=== PATIENT | female | born 1955 | race Caucasian/White ===

== ENCOUNTER → 2025-05-04 17:05 | Outpatient (REF) | payer MEDICARE, BC, SELFPAY | LOC: RAD 17:05 | PROVIDERS: ATTENDING PHYSICIAN Student in an Organized Health Care Education/Training Program; FAMILY PHYSICIAN Physician Assistant | DX: J90 Pleural effusion, not elsewhere classified (principal); R07.89 Other chest pain | CPT/HCPCS: 71046; 71250 ==

== ENCOUNTER → 2025-05-26 11:46 | Outpatient (REF) | payer MEDICARE, BC, SELFPAY | LOC: RAD 11:46 | PROVIDERS: ATTENDING PHYSICIAN Physician Assistant | DX: J90 Pleural effusion, not elsewhere classified (principal) | CPT/HCPCS: 71046 ==

== ENCOUNTER → 2025-08-04 15:46 | Outpatient (REF) | payer MEDICARE, BC, SELFPAY | LOC: RAD 15:46 | PROVIDERS: ATTENDING PHYSICIAN Physician Assistant | DX: E11.9 Type 2 diabetes mellitus without complications (principal); I10 Essential (primary) hypertension; R06.09 Other forms of dyspnea; E87.5 Hyperkalemia; J90 Pleural effusion, not elsewhere classified | CPT/HCPCS: 71046 ==

== ENCOUNTER → 2025-08-08 08:58 | Outpatient (REF) | payer MEDICARE, BC, SELFPAY | LOC: HWRCS 08:58 | PROVIDERS: ATTENDING PHYSICIAN Physician Assistant | DX: E11.9 Type 2 diabetes mellitus without complications (principal); I10 Essential (primary) hypertension; R06.09 Other forms of dyspnea; E78.5 Hyperlipidemia, unspecified; J90 Pleural effusion, not elsewhere classified | CPT/HCPCS: 93306 ==

== ENCOUNTER → 2025-08-23 07:48 | Outpatient (REF) | payer MEDICARE, BC, SELFPAY | LOC: RAD 07:48 | PROVIDERS: ATTENDING PHYSICIAN Physician Assistant | DX: J90 Pleural effusion, not elsewhere classified (principal) | CPT/HCPCS: 71260; Q9967 ==

== ENCOUNTER → 2025-09-08 13:24 | Outpatient (REF) | payer MEDICARE, BC, SELFPAY ==
[2025-09-08 13:51] VITALS: BP 125/74; BP_SYST 90
[2025-09-08 16:46] LABS: Body Fluid Second Tech EYM
== END ==
LOC: RADI 13:24
PROVIDERS: ATTENDING PHYSICIAN Internal Medicine Critical Care Medicine; FAMILY PHYSICIAN Physician Assistant
DX: J90 Pleural effusion, not elsewhere classified (principal)
CPT/HCPCS: 32555; 71045; 82042; 82945; 83615; 84157; 87015; 87070; 87205; 88112; 88305; 89051

== ENCOUNTER → 2025-10-12 13:04 | Outpatient (REF) | payer MEDICARE, BC, SELFPAY | LOC: RAD 13:04 | PROVIDERS: ATTENDING PHYSICIAN Internal Medicine Critical Care Medicine; FAMILY PHYSICIAN Physician Assistant | DX: J90 Pleural effusion, not elsewhere classified (principal) | CPT/HCPCS: 71046 ==